=== PATIENT | male | born 1970 | race Two or more races ===

== ENCOUNTER → 2022-01-08 08:00 | Outpatient (CLI) | payer OTHER ==
[~2022-01-08] VITALS: Ht 180.3 cm; Wt 97.5 kg
[~2022-01-08 08:00] MED LIST: COZAAR50 MG PO
== END | disposition home or self-care (01) ==
LOC: LAB 08:00 → ADM 09:00 → EDSTATUS 01-12 09:00 → CIR.AMB 01-12 09:00
PROVIDERS: ATTEND Otolaryngology Otology & Neurotology
DX: H90.72 Mixed conductive and sensorineural hearing loss, unilateral, left ear, with unrestricted hearing on the contralateral side (principal); H72.02 Central perforation of tympanic membrane, left ear; Z03.818 Encounter for observation for suspected exposure to other biological agents ruled out

== ENCOUNTER 2022-03-16 08:40 | Day surgery (SDC) | payer OTHER ==
[~2022-03-16] VITALS: Ht 180.3 cm; Wt 97.5 kg
[2022-03-16] MEDS ORDERED: CILOXAN5 ML OTIC (15:35)
[2022-03-16] MEDS ORDERED: CEPHALEXIN500 M1 PO (15:36)
== END 2022-03-16 18:15 | disposition home or self-care (01) ==
LOC: CIR.AMB 08:40
PROVIDERS: ATTEND Otolaryngology Otology & Neurotology
DX: H72.02 Central perforation of tympanic membrane, left ear (principal); H90.72 Mixed conductive and sensorineural hearing loss, unilateral, left ear, with unrestricted hearing on the contralateral side; Z20.822 Contact with and (suspected) exposure to COVID-19; I10 Essential (primary) hypertension